=== PATIENT | female | born 1970 | race Caucasian/White ===

== ENCOUNTER → 2021-10-27 | Outpatient (CLI) | payer OTHER ==
--- NOTE | 2021-10-27 12:10 | RAD ---
EXAM: Right hip, 2 views. HISTORY: Pain. COMPARISON: None. FINDINGS: 2 views of the right hip are obtained. There is no fracture, dislocation or subluxation. Th e femoral head is normal in configuration. IMPRESSION: No acute osseous finding. Electronically signed by: Negrita Peguero MD (10/27/2021 12:07 PM) [id number]
== END ==
LOC: RAD 11:37
PROVIDERS: ATTEND Family Medicine
DX: M25.551 Pain in right hip (principal)
CPT/HCPCS: 73502

== ENCOUNTER → 2021-11-10 | Outpatient (CLI) | payer OTHER ==
--- NOTE | 2021-11-22 12:23 | RAD ---
Bilateral digital screening 2-D and 3-D (digital breast tomosynthesis) mammogram: Reason for examination: Routine screening. Comparison: None available. We have requested the patient's previous mammograms, but they have not a rrived. Interpretation was made with the benefit of CAD. FINDINGS: Breast density: Category B. There are scattered areas of fibroglandular density. There is a small asymmetry on the MLO images in the posterior aspect of the left breast slightly belo w the nipple line. This is a approximately 7 cm posterior to the nipple and is not seen on the CC aime ges, however, it may not be included in the [id number]. No malignant appearing calcifications, or architectural distortion is seen. IMPRESSION: Asymmetry seen on the left MLO images in the posterior central breast. Comparison of previous mammogr ams is recommended. If the do not arrive, a diagnostic left mammogram, and if needed targeted left br east ultrasound, is recommended. Assessment: BI-RADS 0. Incomplete. Recommendation: Comparison to previous mammograms. If none are available, diagnostic left mammogram a nd targeted left breast ultrasound. The patient will receive a letter with the results in the mail. Patient information will be entered i nto the mammography reminder system with a target recall date for the next mammogram. A reminder cooper er will be generated. Electronically signed by: Tiffany Dawkins MD (11/22/2021 12:20 PM) [id number]
== END ==
LOC: MAMMO 10:20
PROVIDERS: ATTEND Family Medicine
DX: Z12.31 Encounter for screening mammogram for malignant neoplasm of breast (principal)
CPT/HCPCS: 77063; 77067

== ENCOUNTER → 2021-12-06 | Outpatient (CLI) | payer OTHER ==
--- NOTE | 2021-12-06 17:08 | RAD ---
XR ABDOMEN 2V 12/06/2021 Reason: DIFFUSE ABDOMEN PAIN Comparison: None Technique: Upright and supine views Findings: There are no air-filled dilated loops small and large intestine. No differential air-fluid levels. No free intraperitoneal air. No suspicious calcifications. Impression: Nonspecific nonobstructive bowel gas pattern. Electronically signed by: Edson Mcduffie MD (12/06/2021 5:06 PM) [id number]
== END ==
LOC: RAD 11:30
PROVIDERS: ATTEND Physician Assistant
DX: R10.84 Generalized abdominal pain (principal)
CPT/HCPCS: 74019

== ENCOUNTER → 2021-12-21 | Outpatient (CLI) | payer OTHER ==
--- NOTE | 2021-12-21 15:29 | RAD ---
EXAMINATION: MG DIAGNOSTICUNILAT MAMMO, US BREAST LTD LT CLINICAL HISTORY: Callback left breast asymmetry TECHNIQUE: Digital mediolateral and mediolateral oblique spot compression views of the left breast ob tained. Targeted left breast ultrasound also performed. COMPARISON: Screening mammogram 11/10/2021 BREAST COMPOSITION: There are scattered areas of fibroglandular density. FINDINGS: The asymmetry is only definitively visualized on the mediolateral spot compression view and appears t o be less dense, possibly related to superimposed fibroglandular tissue. On comparison ultrasound, th ere is a small intramammary lymph node at the 3:00 position 10 cm from the nipple, but otherwise no d iscrete abnormality is visualized. IMPRESSION: Probably benign findings in the left breast as described, recommend follow-up left breast diagnostic mammogram and targeted left breast ultrasound in 6 months. BI-RADS ASSESSMENT: Category 3: Probably Benign RECOMMENDATION: Left breast diagnostic mammogram and targeted left breast ultrasound in 6 months. PQRS compliance statement - Patient information was entered into a reminder system with a target due date for the next mammogram. "Our facility is accredited by the [employer] Mammography [employer]." Electronically signed by: Yoseph Spangler DO (12/21/2021 3:27 PM) [id number]
== END ==
LOC: MAMMO 13:02
PROVIDERS: ATTEND Family Medicine
DX: R92.2 Inconclusive mammogram (principal)
CPT/HCPCS: 76642; 77065